=== PATIENT | male | born 1990 | race Caucasian/White ===

== ENCOUNTER 2019-05-31 10:41 | Emergency (ER) | payer BC, OTHER ==
[~2019-05-31] VITALS: Ht 188 cm; Wt 170.1 kg
[2019-05-31] MEDS ORDERED: IV NORMAL SALINE 1,000ML 1,000 ML IV SCH (11:03)
--- NOTE | 2019-05-31 11:09 | PHYS DOC ---
Past History Past Medical History: No Pertinent History Past Surgical History: Tonsillectomy Smoking: Non-smoker Alcohol Use: Occasionally Drug Use: None Adult General Chief Complaint Chief Complaint: ABDOMINAL PAIN HPI HPI Patient is a 29-year-old male who presents with complaint of upper abdominal pain that started this morning at about 5:30. Patient states that pain has been waxing and waning and at its worse was an 8 out of 10 but is currently a 5-6 out of 10. He denies any nausea or vomiting. He also denies any diarrhea. Patient has had no chest pain or shortness of breath and no fever. He states that pain is improved with getting up and walking.[] Review of Systems Review of Systems Constitutional: Denies fever or chills [] Respiratory: Denies cough or shortness of breath [] Cardiovascular: No additional information not addressed in HPI [] GI: Complains of abdominal pain without vomiting or diarrhea [] Integument: Denies rash or skin lesions [] Neurologic: Denies headache, focal weakness or sensory changes [] All other systems were reviewed and found to be within normal limits, except as documented in this note. Allergies Allergies Allergies Coded Allergies Type Severity Reaction Last Updated Verified No Known Drug Allergies 07/24/13 No Physical Exam Physical Exam Constitutional: Well developed, well nourished, no acute distress, non-toxic appearance. [] HENT: Normocephalic, atraumatic, bilateral external ears normal, oropharynx moist, no oral exudates, nose normal. [] Eyes: PERRLA, EOMI, conjunctiva normal, no discharge. [] Neck: Normal range of motion, no tenderness, supple. [] Cardiovascular: Regular rate and rhythm[] Lungs & Thorax: Bilateral breath sounds clear to auscultation [] Abdomen: Bowel sounds normal, soft, no tenderness. [] Skin: Warm, dry, no erythema, no rash. [] Extremities: No tenderness, no cyanosis, no clubbing, ROM intact. [] Neurologic: Alert and oriented X 3, no focal deficits noted. [] EKG EKG [] Radiology/Procedures Radiology/Procedures [] Impressions: PROCEDURE: CT ABD PELV W/ IV CONTRST ONLY EXAM: CT ABDOMEN/PELVIS WITH CONTRAST. HISTORY: Upper abdominal pain. TECHNIQUE: Computed tomography of the abdomen and pelvis was performed after the intravenous administration of iodinated contrast. COMPARISON: None. FINDINGS: Lung windows through the visualized portions of the bases reveal no acute abnormality. Bone windows reveal no suspicious lesions. Hypoattenuation of the hepatic parenchyma consistent with diffuse hepatic steatosis. The gallbladder, pancreas, adrenal glands, spleen and kidneys are unremarkable. There is a retroaortic left renal vein. There are no pathologically enlarged lymph nodes. There is wall thickening of an approximately 30 cm segment of the ileum consistent with enteritis. The terminal ileum is not involved. There is no small bowel obstruction. The appendix is not inflamed. There is no colonic wall thickening. IMPRESSION: 1. Wall thickening of a segment of the ileum consistent with enteritis. Correlate for infection or inflammatory bowel disease. No small bowel obstruction. 2. Diffuse hepatic steatosis. *One or more of the following individualized dose reduction techniques were utilized for this examination: 1. Automated exposure control. 2. Adjustment of the mA and/or kV according to patient size. 3. Use of iterative reconstruction technique. Electronically signed by: Brendan Pate MD (05/31/2019 11:49 AM) [facility] Course & Med Decision Making Course & Med Decision Making Pertinent Labs and Imaging studies reviewed. (See chart for details) [] Dragon Disclaimer Dragon Disclaimer This electronic medical record was generated, in whole or in part, using a voice recognition dictation system. Departure Departure: Impression: Primary Impression: Enteritis Disposition: 01 HOME, SELF-CARE Condition: STABLE Referrals: PCP,NO (PCP) Patient Instructions: Viral Gastroenteritis Scripts Ondansetron Hcl (ZOFRAN) 4 Mg Tablet 4 MG PO Q6HRS PRN for NAUSEA, #12 TAB Prov: JD CASTAÑEDA Jr. DO 05/31/19 Tramadol Hcl (TRAMADOL HCL) 50 Mg Tablet 50 MG PO PRN Q6HRS PRN for PAIN, #12 TAB Prov: JD CASTAÑEDA Jr. DO 05/31/19 Metronidazole (FLAGYL) 500 Mg Tablet 500 MG PO TID for infection, #30 TAB Prov: JD CASTAÑEDA Jr. DO 05/31/19 JD CASTAÑEDA Jr. DO May 31, 2019 11:09
[2019-05-31 11:12] LABS: BASO # 0.2 x10^3/uL (0.0-0.2); BASO % 1 % (0-3); EOS # 0.1 x10^3/uL (0.0-0.7); EOS % 1 % (0-3); HEMOGLOBIN 16.1 g/dL (13.0-17.5); LYMPH # 2.4 x10^3/uL (1.0-4.8); LYMPH % 18 % (24-48); MEAN CORPUSCULAR HEMOGLOBIN 29 pg (25-35); MEAN CORPUSCULAR HGB CONC 34 g/dL (31-37); MEAN CORPUSCULAR VOLUME 85 fL (79-100); MONO % 7 % (0-9); NEUT # 9.9 x10^3uL (1.8-7.7); NEUT % 72 % (31-73); PLATELET COUNT 364 x10^3/uL (140-400); RED CELL DISTRIBUTION WIDTH 13.2 % (11.5-14.5); WHITE BLOOD COUNT 13.6 x10^3/uL (4.0-11.0)
[2019-05-31] MEDS ORDERED: KETOROLAC 30 MG/ML VIAL. IVP ONE (11:15)
[2019-05-31] MEDS ORDERED: IOHEXOL 300 MG/ML 75 ML VIAL. IV ONE (11:15)
[2019-05-31 11:25] LABS: ALBUMIN 3.8 g/dL (3.4-5.0); ALBUMIN/GLOBULIN RATIO 0.9 (1.0-1.7); CALCIUM 9.1 mg/dL (8.5-10.1); CREATININE 0.9 mg/dL (0.7-1.3); GFR 101.2; POTASSIUM 3.9 mmol/L (3.5-5.1); TOTAL BILIRUBIN 0.4 mg/dL (0.2-1.0); TOTAL PROTEIN 8.1 g/dL (6.4-8.2)
[2019-05-31 11:27] LABS: BACTERIA,URINE FEW /HPF (0-FEW); BILIRUBIN,URINE NEG (NEG); CLARITY,URINE HAZY; COLOR,URINE AMBER; GLUCOSE,URINE NEG (NEG); NITRITE,URINE NEG (NEG); SQUAMOUS EPITHELIAL CELL,UR FEW /LPF; UROBILINOGEN,URINE 0.2 mg/dL (0.2 mg/dL)
--- NOTE | 2019-05-31 11:52 | RAD ---
EXAM: CT ABDOMEN/PELVIS WITH CONTRAST. HISTORY: Upper abdominal pain. TECHNIQUE: Computed tomography of the abdomen and pelvis was performed after the intravenous administration of iodinated contrast. COMPARISON: None. FINDINGS: Lung windows through the visualized portions of the bases reveal no acute abnormality. Bone windows reveal no suspicious lesions. Hypoattenuation of the hepatic parenchyma consistent with diffuse hepatic steatosis. The gallbladder, pancreas, adrenal glands, spleen and kidneys are unremarkable. There is a retroaortic left renal vein. There are no pathologically enlarged lymph nodes. There is wall thickening of an approximately 30 cm segment of the ileum consistent with enteritis. The terminal ileum is not involved. There is no small bowel obstruction. The appendix is not inflamed. There is no colonic wall thickening. IMPRESSION: 1. Wall thickening of a segment of the ileum consistent with enteritis. Correlate for infection or inflammatory bowel disease. No small bowel obstruction. 2. Diffuse hepatic steatosis. *One or more of the following individualized dose reduction techniques were utilized for this examination: 1. Automated exposure control. 2. Adjustment of the mA and/or kV according to patient size. 3. Use of iterative reconstruction technique. Electronically signed by: Brendan Pate MD (05/31/2019 11:49 AM) [facility]
[2019-05-31] MEDS ORDERED: METR500T PO (12:08)
[2019-05-31] MEDS ORDERED: TRAM50TA PO (12:08)
[2019-05-31] MEDS ORDERED: ONDA4TAB7 PO (12:08)
[2019-05-31 12:15] VITALS: BP 132/60
== END 2019-05-31 12:15 | disposition home or self-care (01) ==
LOC: ER 10:41
DX: K52.9 Noninfective gastroenteritis and colitis, unspecified (principal)
CPT/HCPCS: 36415; 74177; 80053; 81001; 83690; 85025; 96361; 96374; 99285; J1885; Q9967; J7030